=== PATIENT | female | born 1975 | race Caucasian/White ===

== ENCOUNTER 2021-10-08 17:50 | Inpatient (IN) | payer OTHER, SELFPAY ==
[2021-10-08 17:50] VITALS: BP 135/93; PULSE 101; RESP 18; TEMP 36.2; O2SAT 100; BMI 21.9
[2021-10-08 18:57] LABS: Absolute Lymphocyte Count 3.23 X10^3/uL (0.83-4.51); Absolute Neutrophil Count 4.3 X10^3/uL (2.0-7.7); Basophil# 0.06 X10^3/uL; Basophil% 0.7 % (0-1); Eosinophil# 0.03 X10^3/uL; Eosinophils% 0.4 % (0-5); Hematocrit 38.9 % (37-47); Hemoglobin 13.1 g/dL (12.0-15.0); Lymphocyte # 3.23 X10^3/ul (0.83-4.51); Lymphocyte % 39.3 % (19-41); Mean Corp Hgb Conc 33.7 g/dL (32-36); Mean Corpuscular Hgb 30.5 pg (27.0-32.0); Mean Corpuscular Volume 90.5 fL (81-99); Mean Platelet Vol. 9.2 fl (6.2-12.0); Monocyte# 0.56 X10^3/uL; Monocyte% 6.8 % (0-10); NRBC Flagged by Analyzer 0 % (0-5); Neutrophil # 4.33 X10^3/uL (2.7-7.7); Neutrophil % 52.7 % (47-70); Platelet Count 376 K/mm3 (150-450); RBC Distribution Width CV 13.6 % (11.6-14.6); RBC Distribution Width SD 45.1 fl (35.1-43.9); White Blood Count 8.2 K/mm3 (4.4-11.0)
[2021-10-08 19:11] LABS: Anion Gap 8 (5-15); BUN 12 mg/dL (7-18); BUN/Creat Ratio 22.3 RATIO (10-20); Calcium,Total 8.3 mg/dL (8.5-10.1); Chloride 103 mmol/L (98-107); Creatinine, Serum 0.54 mg/dL (0.55-1.02); EST Glomerular Filtration Rate 129 mL/min (>60); Est Glom Filt Rate - Afr Amer 156 mL/min (>60); Estimated Creatinine Clearance 100.77 ml/min; Glucose 97 mg/dL (74-106); Potassium 3.1 mmol/L (3.5-5.1); Sodium Level 136 mmol/L (136-145)
[2021-10-08 21:02] VITALS: PULSE 100; RESP 16; O2SAT 100
[2021-10-08 21:10] VITALS: BP 132/90
--- NOTE | 2021-10-08 21:39 | EX.ED.SAOD ---
HPI History of Present Illness Chief Complaint: Substance Abuse Informant: patient Narrative Narrative: Presents for alcohol assistance. She is had alcohol problems for years. Gets morning tremors. States she had seizures when she was younger. She is not on any antiepileptics. Alcohol of choice is vodka. Drinks up to 1/5 of vodka a day. Her last drink was this morning. Feels agitated restless has resting tremors. No nausea or vomiting. History of depression and fibromyalgia. Denies any suicidal homicidal ideations. Her last attempted treatment was few weeks ago in [place] she was there for 7 days. She states it did help her when she was there however she relapsed a few days later. History of hysterectomy. Prior similar symptoms: Yes PFSH [facility] Home Medications buspirone 10 mg PO BID 10/08/21 [History Last Taken Unknown] cyclobenzaprine [Flexeril] 5 mg PO TID PRN 10/08/21 [History Last Taken Unknown] escitalopram oxalate 20 mg PO DAILY 10/08/21 [History Last Taken Unknown] trazodone 50 mg PO QHS 10/08/21 [History Last Taken Unknown] Allergy/AdvReac Type Severity Reaction Status Date / Time Penicillins Allergy Rash Verified 10/08/21 17:52 Social History Smoking Status: Former smoker ROS ROS ED Constitutional Constitutional ED: Denies chills, fever(s) or sweats Eyes Eyes: Denies change in vision ENT ENT ED: Denies dysphagia or sore throat Cardiovascular Cardiovascular: Denies chest pain, leg edema, palpitations or racing heartbeat Respiratory/Chest Respiratory/Chest: Denies cough, dyspnea or dyspnea on exertion Gastrointestinal Gastrointestinal: Denies abdominal pain, diarrhea, nausea or vomiting Genitourinary Genitourinary ED: Denies dysuria, hematuria or urinary frequency Musculoskeletal Musculoskeletal: Denies back pain, extremity pain or neck pain Integumentary Denies rash or wounds Neurologic Neurologic: Reports other Details: Tremors and restlessness ; Denies headache(s), paresthesias or weakness EXAM Physical Exam Const Vital Signs: 10/08/21 17:50 10/08/21 21:02 10/08/21 21:10 Temperature 97.2 F L Temperature Source Temporal Pulse Rate 101 H 100 Respiratory Rate 18 16 Blood Pressure 135/93 H 132/90 H Blood Pressure Mean 107 104 Pulse Ox 100 100 Oxygen Delivery Method Room Air Room Air Positive well nourished and well developed General Appearance ED: well developed and NAD HEENT Reports moist mucous membranes normocephalic and atraumatic Eyes PERRL, EOMs intact bilaterally and conjunctivae normal General Eye ED: Yes normal appearance of both eyes Neck no lymphadenopathy and supple General: Negative for tenderness Chest Wall Chest: Negative for tenderness Resp normal respiratory effort and normal air movement Effort and Inspection: symmetric chest movement; Negative for respiratory distress Cardio regular rhythm and no murmurs Rate: tachycardic Peripheral Pulses: pulses 2+ throughout GI normal to inspection, nondistended, normoactive bowel sounds and non-tender Palpation: Negative for guarding or rebound tenderness present Back/Spine no CVA tenderness and no thoracic nor lumbar tenderness Extremity normal to inspection General Extremety ED: Negative for edema or tenderness General Extremity: Negative for edema Neuro oriented x3 Sensorium / Orientation: awake, alert and other Resting tremors bilateral upper extremities. Skin no rashes or lesions noted and no wounds MDM MDM MDM Narrative Medical decision making narrative: Patient cooperative resting tremors. Slight tachycardia of initial evaluation. Treated with Ativan IV. Labs potassium 3.1. Magnesium added and pending. Alcohol returned at 108. Talk screen negative. Discussed with hospitalist Dr. Suarez for admission. Lab Data Attestation: I reviewed the patient's lab results. Labs: Laboratory Results - last 24 hr 10/08/21 10/08/21 10/08/21 18:45 18:45 18:45 WBC 8.2 RBC 4.30 Hgb 13.1 Hct 38.9 MCV 90.5 MCH 30.5 MCHC 33.7 RDW Std Deviation 45.1 H RDW Coeff of Marivel 13.6 Plt Count 376 MPV 9.2 Immature Gran % (Auto) 0.100 Neut % (Auto) 52.7 Lymph % (Auto) 39.3 [place] % (Auto) 6.8 Eos % (Auto) 0.4 Baso % (Auto) 0.7 Absolute Neuts (auto) 4.3 Absolute Lymphs (auto) 3.23 Nucleated RBC % 0 Sodium 136 Potassium 3.1 L Chloride 103 Carbon Dioxide 25.0 Anion Gap 8 BUN 12 Creatinine 0.54 L Estim Creat Clear Calc 100.77 Est GFR (MDRD) Af Amer 156 Est GFR (MDRD) Non-Af 129 BUN/Creatinine Ratio 22.3 H Glucose 97 Calcium 8.3 L Magnesium Urine Opiates Screen Urine Methadone Screen Ur Barbiturates Screen Ur Phencyclidine Scrn Ur Amphetamines Screen U Methamphetamin-MDMA U Benzodiazepines Scrn Urine Cocaine Screen U Cannabinoids Screen Ur Drug Screen Comment Ethyl Alcohol 108.0 10/08/21 10/08/21 18:48 21:14 WBC RBC Hgb Hct MCV MCH MCHC RDW Std Deviation RDW Coeff of Marivel Plt Count MPV Immature Gran % (Auto) Neut % (Auto) Lymph % (Auto) Grant % (Auto) Eos % (Auto) Baso % (Auto) Absolute Neuts (auto) Absolute Lymphs (auto) Nucleated RBC % Sodium Potassium Chloride Carbon Dioxide Anion Gap BUN Creatinine Estim Creat Clear Calc Est GFR (MDRD) Af Amer Est GFR (MDRD) Non-Af BUN/Creatinine Ratio Glucose Calcium Magnesium 1.9 Urine Opiates Screen NEGATIVE Urine Methadone Screen NEGATIVE Ur Barbiturates Screen NEGATIVE Ur Phencyclidine Scrn NEGATIVE Ur Amphetamines Screen NEGATIVE U Methamphetamin-MDMA NEGATIVE U Benzodiazepines Scrn NEGATIVE Urine Cocaine Screen NEGATIVE U Cannabinoids Screen NEGATIVE Ur Drug Screen Comment Ethyl Alcohol Discharge Plan Dx/Rx/DC Orders Clinical Impression: Alcohol dependence, Acute hypokalemia Disposition Disposition: Acute Care Hospital [facility] Discharge Date/Time: 10/09/21 00:30
[2021-10-08] MEDS: LORazepam 2 MG/ML Syringe IV (21:46)
[2021-10-08] MEDS: Potassium Chloride Oral Tablet 20 MEQ 40 MEQ PO (21:46)
[2021-10-08 22:03] LABS: Amphetamine Urine VISTA NEGATIVE (<1000 ng/mL); Barbiturate Urine VISTA NEGATIVE (< 200 ng/mL); Benzodiazepine Urine VISTA NEGATIVE (< 200 ng/mL); Cocaine Urine VISTA NEGATIVE (< 300 ng/mL); Ecstacy Urine VISTA NEGATIVE (< 500 ng/mL); Methadone Urine VISTA NEGATIVE (< 300 ng/mL); PCP Urine VISTA NEGATIVE (< 25 ng/mL); THC Urine VISTA NEGATIVE (< 50 ng/mL); Vista UDS pH Range 7
[2021-10-08 22:22] LABS: Magnesium 1.9 mg/dL (1.6-2.6)
--- NOTE | 2021-10-08 22:27 | HP.PCM_ITS ---
HPI - General HPI Narrative MIA BENNETT, is a 46 F who presents to the emergency room requesting alcohol detoxification. Patient has a longstanding history of alcohol abuse drinking approximately 1/5 of vodka daily. Her last known alcohol intake was Listerine or what ever I could get my hands on at noon today. She felt desperate to make the shakes go away. She failed an attempt of rehab a little over a week ago in [facility]. 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 She is with 5 stepchildren. Patient denies any chest pain shortness of breath, fever, chills or nausea or vomiting. She will be admitted for [facility] protocol. She does have a name of a counselor that she was referred to that she wants to see at discharge. She came to [place] for detox due to reputation and perhaps for professional anonymity. [facility] Home Medications buspirone 10 mg PO BID 10/08/21 [History Last Taken Unknown] cyclobenzaprine [Flexeril] 5 mg PO TID PRN 10/08/21 [History Last Taken Unknown] escitalopram oxalate 20 mg PO DAILY 10/08/21 [History Last Taken Unknown] trazodone 50 mg PO QHS 10/08/21 [History Last Taken Unknown] Allergy/AdvReac Type Severity Reaction Status Date / Time Penicillins Allergy Rash Verified 10/08/21 17:52 Social History Smoking Status: Former smoker ROS Constitutional Constitutional: Denies chills or fever(s) ENT HEENT: Denies abnormal hearing Cardiovascular Cardiovascular: Denies chest pain Respiratory/Chest Respiratory/Chest: Denies cough Gastrointestinal Gastrointestinal: Denies abdominal pain Genitourinary Genitourinary: Denies dysuria Musculoskeletal Musculoskeletal: Denies back pain Neurologic Neurologic: Denies abnormal gait Psychiatric Psychiatric: Reports anxiety Vital Signs Vital Signs Vital Signs: 10/08/21 17:50 10/08/21 21:02 10/08/21 21:10 Temperature 97.2 F L Temperature Source Temporal Pulse Rate 101 H 100 Respiratory Rate 18 16 Blood Pressure 135/93 H 132/90 H Blood Pressure Mean 107 104 Pulse Ox 100 100 Oxygen Delivery Method Room Air Room Air Weight Weight: 120 lb Body Mass Index (BMI) 21.9 Physical Exam Const oriented x3 and no apparent distress Constitutional Narrative: mildly tremulous General Appearance: cooperative HEENT head/scalp atraumatic Eyes PERRL Neck supple Lymph Lymphatic: no lymphadenopathy noted Resp normal respiratory effort and clear to auscultation bilaterally Cardio regular rate, regular rhythm, S1 normal heart sound and S2 normal heart sound GI non-distended Skin General Skin Exam: turgor normal Neuro CN's II-XII intact bilaterally Psych Mood & Affect: anxious Results Lab / Micro Data Result Diagrams: 10/08/21 18:45 10/08/21 18:45 Labs: Laboratory Results - last 24 hr 10/08/21 18:45: WBC 8.2, RBC 4.30, Hgb 13.1, Hct 38.9, MCV 90.5, MCH 30.5, MCHC 33.7, RDW Std Deviation 45.1 H, RDW Coeff of Marivel 13.6, Plt Count 376, MPV 9.2, Immature Gran % (Auto) 0.100, Neut % (Auto) 52.7, Lymph % (Auto) 39.3, [place] % (Auto) 6.8, Eos % (Auto) 0.4, Baso % (Auto) 0.7, Absolute Neuts (auto) 4.3, Absolute Lymphs (auto) 3.23, Nucleated RBC % 0 10/08/21 18:45: Sodium 136, Potassium 3.1 L, Chloride 103, Carbon Dioxide 25.0, Anion Gap 8, BUN 12, Creatinine 0.54 L, Estim Creat Clear Calc 100.77, Est GFR (MDRD) Af Amer 156, Est GFR (MDRD) Non-Af 129, BUN/Creatinine Ratio 22.3 H, Glucose 97, Calcium 8.3 L 10/08/21 18:45: Ethyl Alcohol 108.0 10/08/21 18:48: Magnesium 1.9 10/08/21 21:14: Urine Opiates Screen NEGATIVE, Urine Methadone Screen NEGATIVE, Ur Barbiturates Screen NEGATIVE, Ur Phencyclidine Scrn NEGATIVE, Ur Amphetamines Screen NEGATIVE, U Methamphetamin-MDMA NEGATIVE, U Benzodiazepines Scrn NEGATIVE, Urine Cocaine Screen NEGATIVE, U Cannabinoids Screen NEGATIVE, Ur Drug Screen Comment Micro: Microbiology 10/08/21 21:48 Nasal Secretion SARS-CoV-2 Antigen (Rapid) - Final Assessment & Plan Assessment/Plan (1) Alcohol dependence: PLAN: 1. Alcohol abuse?admit patient to medical surgical floor, start CIWA protocol, consult bilingual case manager for ongoing plan after discharge. 2. DVT prophylaxis?SCDs Charges/Coding Multi Select Codes Visit Charges Visit Charges: 43149 Init Hosp L3
--- NOTE | 2021-10-08 23:18 | CM.ED ---
SOCIAL WORK Referral Source: Self-referral Reason for Consult: Substance abuse- requesting detox from alcohol Patient presents to ER for detox from alcohol. Patient reported last drink today. Patient has completed MARGO agreement with nursing. Stella Addiction Therapist updated. Plan: MARGO Hoang MSW, CASH CLERK
[2021-10-08 23:42] VITALS: BP 130/74; PULSE 80; RESP 17; TEMP 36.7; O2SAT 98
[2021-10-09 03:27] VITALS: BMI 21.5
[2021-10-09 03:46] VITALS: BP 128/80; PULSE 100; RESP 18; TEMP 36.6; O2SAT 100
[2021-10-09 04:00] VITALS: PULSE 100
[2021-10-09] MEDS: LORazepam 1 MG Tablet 2 MG PO ×2 (04:03→09:41)
--- NOTE | 2021-10-09 04:52 | PCS.PANDOC ---
PANDEMIC DOCUMENTATION INITIATED: Date: 07/16/2021 Time: 1900 Emergency documentation initiated 10/09/21 @ 0330
--- NOTE | 2021-10-09 09:37 | PCM.PN.HOSP ---
Subjective Subjective Patient is dehydrated. She is having shakings tremors, restless leg, muscle aches and pain and nausea feeling. She drinks 1/5 bottle of vodka every day continuously for last 2 weeks. She started drinking alcohol in teenage with multiple episodes of relapses. Objective Data Objective Data Vital Signs: Vital Signs Temp Pulse Resp BP Pulse Ox 98 F 100 18 128/80 H 100 10/09/21 03:46 10/09/21 04:00 10/09/21 03:46 10/09/21 03:46 10/09/21 03:46 Oxygen Delivery Method Room Air Weight: 117 lb 11.629 oz Body Mass Index (BMI) 21.5 Intake & Output: Intake and Output for Last 24 Hours 10/07/21 10/08/21 10/09/21 23:59 23:59 23:59 Intake Total 300 / 300 Balance 300 / 300 Lab / Micro Data Result Diagrams: 10/08/21 18:45 10/08/21 18:45 Labs: Laboratory Results - last 24 hr 10/08/21 18:45: WBC 8.2, RBC 4.30, Hgb 13.1, Hct 38.9, MCV 90.5, MCH 30.5, MCHC 33.7, RDW Std Deviation 45.1 H, RDW Coeff of Marivel 13.6, Plt Count 376, MPV 9.2, Immature Gran % (Auto) 0.100, Neut % (Auto) 52.7, Lymph % (Auto) 39.3, [place] % (Auto) 6.8, Eos % (Auto) 0.4, Baso % (Auto) 0.7, Absolute Neuts (auto) 4.3, Absolute Lymphs (auto) 3.23, Nucleated RBC % 0 10/08/21 18:45: Sodium 136, Potassium 3.1 L, Chloride 103, Carbon Dioxide 25.0, Anion Gap 8, BUN 12, Creatinine 0.54 L, Estim Creat Clear Calc 100.77, Est GFR (MDRD) Af Amer 156, Est GFR (MDRD) Non-Af 129, BUN/Creatinine Ratio 22.3 H, Glucose 97, Calcium 8.3 L 10/08/21 18:45: Ethyl Alcohol 108.0 10/08/21 18:48: Magnesium 1.9 10/08/21 21:14: Urine Opiates Screen NEGATIVE, Urine Methadone Screen NEGATIVE, Ur Barbiturates Screen NEGATIVE, Ur Phencyclidine Scrn NEGATIVE, Ur Amphetamines Screen NEGATIVE, U Methamphetamin-MDMA NEGATIVE, U Benzodiazepines Scrn NEGATIVE, Urine Cocaine Screen NEGATIVE, U Cannabinoids Screen NEGATIVE, Ur Drug Screen Comment Micro: Microbiology 10/08/21 21:48 Nasal Secretion SARS-CoV-2 Antigen (Rapid) - Final Physical Exam Narrative General: Alert, Oriented x3, Cooperative HEENT: Atraumatic, PERRLA, EOMI, Normocephalic Oral: Oral mucosa dry. No Gingival or Mucosal Lesions/ Ulcerations Neck: Supple, No JVD, Negative Carotid Bruits Lungs: Air entry diminished in bilateral lung bases. No crepitation/rhonchi Cardiovascular: Regular rate, Regular Rhythm, Normal S1, Normal S2, No murmurs Abdomen: Bowel Sounds Present, Soft, Non Tender, Non-Distended : No renal angle tenderness. No suprapubic tenderness. Extremities: No edema, Capillary Refill Less than 3 Seconds Skin: Skin is dry and flushed. Musculoskeletal: No Tenderness to Palpation of Joints or Extremities Neurological: Cranial nerves II-XII grossly intact, DTR 2+/4 and Symmetrical, Neuro grossly intact Psych/Mental Status: Restless, anxious Assessment & Plan Assessment/Plan (1) Alcohol withdrawal syndrome: QUALIFIERS: Complication of substance-induced condition: with delirium Qualified Code(s): F10.231 - Alcohol dependence with withdrawal delirium PLAN: 1. Acute alcohol withdrawal syndrome with chronic alcohol use and dependence: Patient is hyperactive. Currently she is not confused. IV fluid Ringer lactate 125 mill per hour for 1 L. Patient was on Ativan as stabilizing medication which was changed to phenobarbital. She had other supportive medications including gabapentin, hydroxyzine, BuSpar and, cyclobenzaprine, Imodium and other adjunctive medication 2. Chronic alcohol use and dependence: On folic acid, thiamine. She denies any stigmata of chronic liver disease including jaundice, ascites, variceal bleeding or anastomosis. On Protonix 40 mg daily. Labs for today ordered including liver chemistry 3. Chronic anxiety and depression: Patient on Lexapro at home which is held. She is on trazodone and hydroxyzine. 4. Hypokalemia and dehydration: IV fluid. Potassium getting replaced. Will check electrolytes and replace accordingly. 5. DVT prophylaxis: Low risk bilateral AC Charges/Coding Visit Charges Inpatient E&M: 72366 Subs Hosp L2
[2021-10-09 09:38] LABS: Absolute Lymphocyte Count 2.35 X10^3/uL (0.83-4.51); Absolute Neutrophil Count 4.3 X10^3/uL (2.0-7.7); Basophil# 0.06 X10^3/uL; Basophil% 0.8 % (0-1); Eosinophil# 0.14 X10^3/uL; Eosinophils% 1.9 % (0-5); Hematocrit 36.6 % (37-47); Hemoglobin 12.3 g/dL (12.0-15.0); Lymphocyte # 2.35 X10^3/ul (0.83-4.51); Lymphocyte % 31.8 % (19-41); Mean Corp Hgb Conc 33.6 g/dL (32-36); Mean Corpuscular Hgb 30.8 pg (27.0-32.0); Mean Corpuscular Volume 91.5 fL (81-99); Mean Platelet Vol. 9.3 fl (6.2-12.0); Monocyte# 0.54 X10^3/uL; Monocyte% 7.3 % (0-10); NRBC Flagged by Analyzer 0 % (0-5); Neutrophil # 4.28 X10^3/uL (2.7-7.7); Neutrophil % 58.1 % (47-70); Platelet Count 331 K/mm3 (150-450); RBC Distribution Width CV 13.5 % (11.6-14.6); RBC Distribution Width SD 45.7 fl (35.1-43.9); White Blood Count 7.4 K/mm3 (4.4-11.0)
[2021-10-09 09:43] VITALS: BP 126/90; PULSE 102; RESP 16; TEMP 36.5; O2SAT 100
[2021-10-09 10:02] LABS: ALB/GLOB Ratio 0.9 RATIO (0.9-2.4); AST(SGOT) 63 U/L (15-37); Alanine Aminotransfer ALT/SGPT 50 U/L (13-56); Albumin, Serum 3.2 g/dL (3.2-5.0); Alkaline Phosphatase 53 U/L (45-117); Anion Gap 6 (5-15); BUN 11 mg/dL (7-18); BUN/Creat Ratio 15.4 RATIO (10-20); Calcium,Total 8.5 mg/dL (8.5-10.1); Chloride 105 mmol/L (98-107); Creatinine, Serum 0.71 mg/dL (0.55-1.02); EST Glomerular Filtration Rate 93 mL/min (>60); Est Glom Filt Rate - Afr Amer 112 mL/min (>60); Estimated Creatinine Clearance 76.64 ml/min; Globulin 3.4 g/dL (2.2-4.2); Glucose 115 mg/dL (74-106); Magnesium 1.9 mg/dL (1.6-2.6); Phosphorus 2.2 mg/dL (2.5-4.9); Potassium 3.8 mmol/L (3.5-5.1); Protein, Total 6.6 g/dL (6.4-8.2); Sodium Level 136 mmol/L (136-145)
[2021-10-09] MEDS: Folic Acid 1 MG Tablet PO (10:48)
[2021-10-09] MEDS: Phenobarbital 32.4 MG Tablet 64.8 MG PO ×4 (10:48→21:41)
[2021-10-09] MEDS: Thiamine Hydrochloride 100 MG Tablet PO (10:49)
[2021-10-09] MEDS: busPIRone 5 MG Tablet 10 MG PO ×2 (10:49→21:40)
[2021-10-09] MEDS: Nicotine Polacrilex 2 MG GUM PO ×2 (12:02→17:41)
[2021-10-09] MEDS: 0.9% Saline Lock 10 ML Syringe IV (13:38)
[2021-10-09] MEDS: Lactated Ringers 1,000 ML 125 ML IV (13:38)
[2021-10-09] MEDS: Ondansetron ODT 4 MG Tablet 8 MG PO (17:40)
[2021-10-09 20:33] VITALS: BP 106/75; PULSE 114; RESP 18; TEMP 36.3; O2SAT 94
[2021-10-10 01:49] VITALS: BP 126/88; PULSE 93; RESP 18; TEMP 36.2; O2SAT 98
[2021-10-10] MEDS: Phenobarbital 32.4 MG Tablet 64.8 MG PO ×6 (01:52→20:57)
[2021-10-10] MEDS: Ondansetron ODT 4 MG Tablet 8 MG PO ×2 (02:34→10:13)
[2021-10-10 07:47] VITALS: BP 118/83; PULSE 89; RESP 18; TEMP 36.6; O2SAT 98
[2021-10-10] MEDS: Thiamine Hydrochloride 100 MG Tablet PO (07:56)
[2021-10-10] MEDS: Folic Acid 1 MG Tablet PO (07:56)
[2021-10-10] MEDS: hydrOXYzine PAM 25 MG Capsule 50 MG PO (08:01)
[2021-10-10] MEDS: Nicotine Polacrilex 2 MG GUM PO ×3 (08:01→18:29)
[2021-10-10] MEDS: busPIRone 5 MG Tablet 10 MG PO ×2 (10:15→20:56)
--- NOTE | 2021-10-10 11:24 | PN.HOSP_ITS ---
Subjective Subjective Doing well, No issues overnight. Her CIWA this morning was a 6. Objective Data Objective Data Vital Signs: Vital Signs Temp Pulse Resp BP Pulse Ox 97.8 F 89 18 118/83 H 98 10/10/21 07:47 10/10/21 07:47 10/10/21 07:47 10/10/21 07:47 10/10/21 07:47 Oxygen Delivery Method Room Air Weight: 117 lb 11.629 oz Body Mass Index (BMI) 21.5 Intake & Output: Intake and Output for Last 24 Hours 10/09/21 10/10/21 10/11/21 03:59 03:59 03:59 Intake Total 1195.83 / 1195.83 Balance 1195.83 / 1195.83 Lab / Micro Data Result Diagrams: 10/09/21 09:24 10/09/21 09:24 Micro: Microbiology 10/08/21 21:48 Nasal Secretion SARS-CoV-2 Antigen (Rapid) - Final Physical Exam Const alert, oriented x3 and no apparent distress General Appearance: cooperative HEENT normocephalic and moist oral mucous membranes Eyes PERRL, EOMs intact bilaterally and conjunctivae normal Neck supple and no JVD Resp normal respiratory effort, no retractions, no use of accessory muscles and clear to auscultation bilaterally Auscultation: Negative for crackles, rales, rhonchi or wheezes Cardio regular rate, regular rhythm, S1 normal heart sound, S2 normal heart sound and no murmurs GI soft to palpation, non-tender and non-distended; Negative for hepatosplenomegaly Extremity no clubbing, cyanosis or edema Skin no rashes or lesions noted Neuro no focal motor deficits and no sensory deficits noted Psych affect normal Appearance: appropriate Assessment & Plan Assessment/Plan (1) Alcohol withdrawal syndrome: QUALIFIERS: Complication of substance-induced condition: with delirium Qualified Code(s): F10.231 - Alcohol dependence with withdrawal delirium PLAN: 1. Acute alcohol withdrawal syndrome with chronic alcohol use and dependence: Patient is hyperactive. Currently she is not confused. IV fluid Ringer lactate 125 mill per hour for 1 L. Patient was on Ativan as stabilizing medication which was changed to phenobarbital. She had other supportive medicat ions including gabapentin, hydroxyzine, BuSpar and, cyclobenzaprine, Imodium and other adjunctive medication 10/10/2021: Doing well, continue with the alcohol withdrawal protocol. Will evaluate for discharge planning with 180 2. Chronic anxiety and depression: Patient on Lexapro at home which is held. She is on trazodone and hydroxyzine. DVT: Ambulation Charges/Coding Visit Charges Inpatient E&M: 33283 Subs Hosp L2
[2021-10-10 13:47] VITALS: BP 116/74; PULSE 110; RESP 18; TEMP 37.1; O2SAT 98
[2021-10-10 13:48] VITALS: PULSE 110
--- NOTE | 2021-10-10 15:56 | ADDICTION ---
RAMP provider, Maryellen, was in to see pt this morning and filled out paper forms and placed in chart. TW saw pt to obtain ROIs to explore further treatment for the client. Pt signed TOTO for . Pt stated that her sister in law, who is a psychiatrist at [facility], was looking into residential placement for her. Pt also signed OTTO for , her insurance. Further d/c planning will occur.
[2021-10-10 20:00] VITALS: BP 110/89; PULSE 108; RESP 18; TEMP 36.8; O2SAT 96
[2021-10-10] MEDS: traZODone 100 MG Tablet PO (20:57)
[2021-10-10] MEDS: Ibuprofen 400 MG Tablet PO (20:58)
[2021-10-11] MEDS: Phenobarbital 32.4 MG Tablet 64.8 MG PO ×4 (02:09→13:50)
[2021-10-11 02:14] VITALS: BP 120/62; PULSE 92; RESP 18; TEMP 36.6; O2SAT 95
[2021-10-11 09:00] VITALS: BP 97/71; PULSE 108; RESP 16; TEMP 36.5; O2SAT 95
[2021-10-11] MEDS: busPIRone 5 MG Tablet 10 MG PO (09:15)
[2021-10-11] MEDS: Thiamine Hydrochloride 100 MG Tablet PO (09:15)
[2021-10-11] MEDS: Folic Acid 1 MG Tablet PO (09:15)
--- NOTE | 2021-10-11 09:46 | PCM.PN.HOSP ---
Subjective Subjective Doing well, no issues overnight, last CIWA of a 1 Objective Data Objective Data Vital Signs: Vital Signs Temp Pulse Resp BP Pulse Ox 97.7 F L 108 H 16 97/71 95 10/11/21 09:00 10/11/21 09:00 10/11/21 09:00 10/11/21 09:00 10/11/21 09:00 Oxygen Delivery Method Room Air Weight: 117 lb 11.629 oz Body Mass Index (BMI) 21.5 Intake & Output: Intake and Output for Last 24 Hours 10/10/21 10/11/21 10/12/21 03:59 03:59 03:59 Intake Total 1195.83 / 1195.83 1320 / 1320 Balance 1195.83 / 1195.83 1320 / 1320 Lab / Micro Data Result Diagrams: 10/09/21 09:24 10/09/21 09:24 Micro: Microbiology 10/08/21 21:48 Nasal Secretion SARS-CoV-2 Antigen (Rapid) - Final Physical Exam Const alert, oriented x3 and no apparent distress General Appearance: cooperative HEENT normocephalic and moist oral mucous membranes Eyes PERRL, EOMs intact bilaterally and conjunctivae normal Neck supple and no JVD Resp normal respiratory effort, no retractions, no use of accessory muscles and clear to auscultation bilaterally Auscultation: Negative for crackles, rales, rhonchi or wheezes Cardio regular rate, regular rhythm, S1 normal heart sound, S2 normal heart sound and no murmurs GI soft to palpation, non-tender and non-distended; Negative for hepatosplenomegaly Extremity no clubbing, cyanosis or edema Skin no rashes or lesions noted Neuro no focal motor deficits and no sensory deficits noted Psych affect normal Appearance: appropriate Assessment & Plan Assessment/Plan (1) Alcohol withdrawal syndrome: QUALIFIERS: Complication of substance-induced condition: with delirium Qualified Code(s): F10.231 - Alcohol dependence with withdrawal delirium PLAN: 1. Acute alcohol withdrawal syndrome with chronic alcohol use and dependence: Patient is hyperactive. Currently she is not confused. IV fluid Ringer lactate 125 mill per hour for 1 L. Patient was on Ativan as stabilizing medication which was changed to phenobarbital. She had other supportive medications including gabapentin, hydroxyzine, BuSpar and, cyclobenzaprine, Imodium and other adjunctive medication 10/10/2021: Doing well, continue with the alcohol withdrawal protocol. Will evaluate for discharge planning with 180 10/11/21: Doing well, will await recommendations for placement prior to discharge. 2. Chronic anxiety and depression: Patient on Lexapro at home which is held. She is on trazodone and hydroxyzine. DVT: Ambulation Charges/Coding Visit Charges Inpatient E&M: 37200 Subs Hosp L2
--- NOTE | 2021-10-11 12:20 | ADDICTION ---
This creative services writer met with PT to conduct d/c planning. PT plans to f/u at [facility] in [place], [place] for residential treatment and follow-up counseling services. PT did not indicate a need for transportation post d/c from [facility].
[2021-10-11] MEDS: Acetaminophen 500 MG Tablet PO (12:31)
[2021-10-11] MEDS: Nicotine Polacrilex 2 MG GUM PO (13:51)
[2021-10-11 13:53] VITALS: BP 117/88; PULSE 100; RESP 18; TEMP 36.5; O2SAT 96
--- NOTE | 2021-10-11 14:08 | PCM.DC ---
Discharge Instructions Diet Discharge Diet: No restrictions Activity Discharge Activity: Return to Normal Activity Dressing / Incision Call your doctor if you observe: Fever of 101 or Higher, Shortness of breath, Dizziness, Fainting spells, Swelling in the ankles, Chest pain and Increased palpitations (irregular heartbeat) Follow Up Care Test Results: Test results from this visit will be discussed in further detail at your follow-up appointment, if applicable. Discharge Plan Admission Admit Date/Time: 10/08/21 22:32 Attending Provider: Robe Ibarra Discharge Orders/Prescriptions Prescriptions: Continued trazodone 50 mg Tablet 100 mg PO QHS RF: 0 buspirone 10 mg Tablet 10 mg PO BID RF: 0 escitalopram oxalate 20 mg Tablet 20 mg PO DAILY RF: 0 cyclobenzaprine 5 mg Tablet 5 mg PO TID PRN (Reason: Pain) RF: 0 naproxen sodium 220 mg Tablet 220 mg PO PRN PRN (Reason: Pain) RF: 0 Referrals / Follow Up: [facility] [Other] Disposition Disposition (needs filled in before D/C Order can be placed): Home, Self Care
--- NOTE | 2021-10-11 14:10 | DS.PCM_ITS ---
Providers Date of Admission: 10/08/21 Primary Care Physician: FAB BENAVIDES Reason For Visit: ALCOHOL DETOX Diagnosis Discharge Diagnosis (1) Alcohol withdrawal syndrome: Status: Acute Code(s): F10.239 - Alcohol dependence with withdrawal, unspecified Qualifiers: Complication of substance-induced condition: with delirium Qualified Code(s): F10.231 - Alcohol dependence with withdrawal delirium Medications at Discharge Home Medications buspirone 10 mg PO BID 10/08/21 cyclobenzaprine 5 mg PO TID PRN 10/08/21 escitalopram oxalate 20 mg PO DAILY 10/08/21 trazodone 100 mg PO QHS 10/08/21 naproxen sodium 220 mg PO PRN PRN 10/09/21 Hospital Course Operations None Procedures None Summary of Care Provided Minutes Spent on Discharge: 40 Hospital Course: Per HPI: MIA BENNETT, is a 46 F who presents to the emergency room requesting alcohol detoxification. Patient has a longstanding history of alcohol abuse drinking approximately 1/5 of vodka daily. Her last known alcohol intake was Listerine or what ever I could get my hands on at noon today. She felt desperate to make the shakes go away. She failed an attempt of rehab a little over a week ago in [facility]. 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 She is with 5 stepchildren. Patient denies any chest pain shortness of breath, fever, chills or nausea or vomiting. She will be admitted for [place] protocol. She does have a name of a counselor that she was referred to that she wants to see at discharge. She came to [facility] for detox due to reputation and perhaps for professional anonymity. Hospital Course: 1. Acute alcohol withdrawal syndrome with chronic alcohol use and dependence: Patient is hyperactive. Currently she is not confused. IV fluid Ringer lactate 125 mill per hour for 1 L. Patient was on Ativan as stabilizing medication which was changed to phenobarbital. She had other supportive medications including gabapentin, hydroxyzine, BuSpar and, cyclobenzaprine, Imodium and other adjunctive medication 10/10/2021: Doing well, continue with the alcohol withdrawal protocol. Will evaluate for discharge planning with 180 10/11/21: Doing well, she was accepted to a rehab facility down to [place] that her is willing to drive her to today. This is cleared by 180 therefore we will plan for discharge today to residential treatment for alcohol abuse. 2. Chronic anxiety and depression: Patient on Lexapro at home which is held. She is on trazodone and hydroxyzine. Weight / BMI Weight Weight: 117 lb 11.629 oz Body Mass Index (BMI) 21.5 ABG / Lab / Microbiology Data Result Diagrams: 10/09/21 09:24 10/09/21 09:24 Microbiology: Microbiology 10/08/21 21:48 Nasal Secretion SARS-CoV-2 Antigen (Rapid) - Final D/C Instructions Discharge Diet: No restrictions Call your doctor if you observe: Fever of 101 or Higher, Shortness of breath, Dizziness, Fainting spells, Swelling in the ankles, Chest pain and Increased palpitations (irregular heartbeat) Meaningful Use Info Meaningful Use Diagnoses (Choose all that apply): None applicable Discharge Plan Admission Admit Date/Time: 10/08/21 22:32 Attending Provider: Robe Ibarra Discharge Orders/Prescriptions Prescriptions: Continued trazodone 50 mg Tablet 100 mg PO QHS RF: 0 buspirone 10 mg Tablet 10 mg PO BID RF: 0 escitalopram oxalate 20 mg Tablet 20 mg PO DAILY RF: 0 cyclobenzaprine 5 mg Tablet 5 mg PO TID PRN (Reason: Pain) RF: 0 naproxen sodium 220 mg Tablet 220 mg PO PRN PRN (Reason: Pain) RF: 0 Referrals / Follow Up: FAB BENAVIDES [Other] Disposition Disposition (needs filled in before D/C Order can be placed): Home, Self Care Charges/Coding Visit Charges Inpatient E&M: 63035 Disch Hosp
--- NOTE | 2021-10-11 15:24 | PCS.PANDOC ---
PANDEMIC DOCUMENTATION INITIATED: Date: 07/16/2021 Time: 190
[2021-10-11 15:40] VITALS: BP 117/88; PULSE 100; RESP 18; TEMP 36.5; O2SAT 96
== END 2021-10-11 17:00 | disposition home or self-care (01) | DRG 897 ==
LOC: ED 22:17 → MS2 23:07
PROVIDERS: Internal Medicine; Admitting Provider Family Medicine; Emergency Provider Emergency Medicine; Visit Provider Family Medicine
DX: F10.231 Alcohol dependence with withdrawal delirium (principal); Y90.9 Presence of alcohol in blood, level not specified; E87.6 Hypokalemia; E86.0 Dehydration; F32.A Depression, unspecified; F41.9 Anxiety disorder, unspecified; M79.7 Fibromyalgia; Z79.899 Other long term (current) drug therapy; Z87.891 Personal history of nicotine dependence
CPT/HCPCS: 36415; 80048; 80053; 80307; 82077; 83735; 84100; 85025; 87426; 99285; J7120; A4216